=== PATIENT | female | born 1960 | race African-American/Black ===

== ENCOUNTER → 2016-07-25 | Outpatient (CLI) | payer OTHER ==
--- NOTE | ~2016-07-25 | US128 ---
[id number] [facility]. [facility] [address] [place], [place] [address] [id number] O MR#: [id number] Acc #: [id number] NAME: ELIZABETH SMILEY : 1960 SEX: F STUDY DATE/TIME: 07/25/2016 13:53 UNIT: CGUS ROOM: STUDY DESCRIPTION: US Thyroid Attending Physician: Hossein Greer M.D. Referring Physician: Hossein Greer M.D. Ordering Physician: Hossein Greer M.D. Primary Care Physician: Neville Jensen Pa-C MEDICAL IMAGING REPORT This report is preliminary unless electronic signature is present EXAM Thyroid ultrasound. DATE OF EXAM 07/25/2016 COMPARISON Prior study 11/30/2015. CLINICAL HISTORY Routine followup for known thyroid nodules. FINDINGS On the right, overall gland echotexture is normal. There are a few small subcentimeter 4-5 mm nodules. On the left, there is a hypoechoic lateral lower pole nodule solid-appearing measuring 1.3 x 0.7 x 1 cm. It was measured at 1.2 x 0.8 x 1.1 cm previously, not convincingly changed. It is nonhypervascular. There is a second left lobe mostly cystic, mixed cystic and solid nodule currently measuring 1.1 x 0.9 x 1 cm. It is slightly larger than at the time of the prior study when it measured 8 x 8 x 9 mm, but again appears mostly cystic. No new nodules are seen. IMPRESSION 1. Stable left lower pole solid nodule 1.3 x 0.7 x 1 cm. No convincing change since 11/30/2015. 2. Slightly larger but mostly cystic left mid pole lesion measuring 1.1 x 1.0 x 0.9 cm. This is slightly increased since the prior study, primarily due to an increase in fluid component. Continued surveillance is recommended at present. No definite indication for tissue sampling at this time. Dictated by... Domingo Paulino M.D. THIS IS AN ELECTRONICALLY VERIFIED REPORT Domingo Paulino M.D. at 07/26/2016 4:02 PM MC/andrzej TD: 07/25/2016 17:41 JOB #: [id number] MEDICAL IMAGING REPORT Page 1 of 1 COPY
== END | disposition home or self-care (01) ==
LOC: CGUS 13:04
DX: E04.1 Nontoxic single thyroid nodule (principal)
CPT/HCPCS: 76536

== ENCOUNTER → 2016-09-11 | Outpatient (CLI) | payer OTHER ==
--- NOTE | ~2016-09-11 | CR63 ---
[facility] A Service of [facility] RADIOLOGY TEXT RESULTS PATIENT: ELIZABETH SMILEY LOCATION: [facility] : 60 UNIT #: [id number] AGE: [address]: TRACY MCINTYRE APRN SEX: F ORDER DR: [id number] [facility] [address] [place], [place] [address] [id number] O MR#: [id number] Acc #: [id number] NAME: ELIZABETH SMILEY : 1960 SEX: F STUDY DATE/TIME: 09/11/2016 15:55 UNIT: [facility] ROOM: STUDY DESCRIPTION: CR Chest 2 View Attending Physician: Tracy Mcintyre Aprn Referring Physician: Tracy Mcintyre Aprn Ordering Physician: Tracy Mcintyre Aprn Primary Care Physician: Neville Jensen Pa-C MEDICAL IMAGING REPORT This report is preliminary unless electronic signature is present EXAM Chest, PA and lateral, 09/11/2016. HISTORY Shortness breath, cough and chest congestion. Chest pain, left side, under breast for 2 weeks. Smoking history. FINDINGS PA and lateral examination of the chest upright shows a good expansion of the parenchyma with a normal distribution of the pulmonary vascularity. There is no indication of congestion, effusion, infiltrate, tumor, or nodular density. The pleural reflections and diaphragmatic contours are normal. The cardiac silhouette and mediastinal anatomy is within normal limits. IMPRESSION Normal chest. Dictated by... Fernando Lane M.D. THIS IS AN ELECTRONICALLY VERIFIED REPORT Fernando Lane M.D. at 09/13/2016 8:11 AM DUARTE/tin TD: 09/12/2016 11:41 JOB #: [id number] MEDICAL IMAGING REPORT Page 1 of 1 COPY
== END | disposition home or self-care (01) ==
LOC: CRAD 15:35
DX: R06.00 Dyspnea, unspecified (principal); R07.9 Chest pain, unspecified
CPT/HCPCS: 71020

== ENCOUNTER → 2016-11-28 | Outpatient (CLI) | payer OTHER ==
--- NOTE | ~2016-11-28 | US5 ---
[facility] A Service of [facility] RADIOLOGY TEXT RESULTS PATIENT: ELIZABETH SMILEY LOCATION: [facility] : 60 UNIT #: [id number] AGE: [address]: Rosalie Menezes CALL CENTER COORDINATOR SEX: F ORDER DR: [id number] [facility] [address] [place], [place] [address] [id number] O MR#: [id number] Acc #: [id number] NAME: ELIZABETH SMILEY : 1960 SEX: F STUDY DATE/TIME: 11/28/2016 9:36 UNIT: [facility] ROOM: STUDY DESCRIPTION: US Abdominal Complete Attending Physician: Rosalie Menezes A.P.R.N. Referring Physician: Karl Chatman M.D. Ordering Physician: Rosalie Menezes A.P.R.N. Primary Care Physician: Tracy Manzo Aprn MEDICAL IMAGING REPORT This report is preliminary unless electronic signature is present EXAM Abdominal ultrasound INDICATIONS Left-sided abdominal pain beginning 11/18/2016 PROCEDURE Puri-scale and Doppler imaging of the abdomen COMPARISON 03/20/2016 FINDINGS Pancreas shows no appreciable abnormality. There is a 1.4 cm cyst in the left lobe of the liver. Liver measures 14.2 cm. Unremarkable gallbladder. Right kidney measures 10.4 cm. No hydronephrosis. Common duct measures 3 mm. Submitted images abdominal aorta inferior vena cava unremarkable. Spleen measures 9.6 cm. Left kidney measures 11.8 cm and is unremarkable. IMPRESSION 1. No acute findings in the abdomen. 2. Small benign left hepatic lobe cyst. Dictated by... Dimas Scott M.D. THIS IS AN ELECTRONICALLY VERIFIED REPORT Dimas Scott M.D. at 11/29/2016 3:28 PM EED/rnr TD: 11/28/2016 14:14 JOB #: [id number] [facility] A Service [facility] RADIOLOGY TEXT RESULTS PATIENT: ELIZABETH SMILEY LOCATION: [facility] : 60 UNIT #: [id number] AGE: [address]: Rosalie Menezes SEX: F ORDER DR: MEDICAL IMAGING REPORT Page 1 of 1 COPY
== END | disposition home or self-care (01) ==
LOC: CWCC 08:58
DX: R10.32 Left lower quadrant pain (principal); K76.89 Other specified diseases of liver
CPT/HCPCS: 76700

== ENCOUNTER → 2016-12-04 | Outpatient (CLI) | payer OTHER ==
--- NOTE | ~2016-12-04 | MY29 ---
[facility] A Service of [facility] RADIOLOGY TEXT RESULTS PATIENT: ELIZABETH SMILEY LOCATION: [facility] : 60 UNIT #: [id number] AGE: [address]: TRACY MCINTYRE APRN SEX: F ORDER DR: [id number] [facility] [address] [place], [place] [address] [id number] O MR#: [id number] Acc #: [id number] NAME: ELIZABETH SMILEY : 1960 SEX: F STUDY DATE/TIME: 12/04/2016 10:07 UNIT: [facility] ROOM: STUDY DESCRIPTION: MY KYLE SCREENING W/ CAD BILAT Attending Physician: Tracy Mcintyre Aprn Referring Physician: Rosalie Menezes A.P.R.N. Ordering Physician: Tracy Mcintyre Aprn Primary Care Physician: Tracy Mcintyre Aprn MEDICAL IMAGING REPORT This report is preliminary unless electronic signature is present EXAM Digital screening mammogram 12/04/2016 HISTORY 56-year-old woman. Positive family history. Annual screen. COMPARISON Mammograms date to 01/12/2014 with most recent 09/29/2015. FINDINGS Digital imaging of each breast was completed utilizing a two-view examination of each breast in craniocaudal and mediolateral-oblique projections. Review and interpretation of digital mammograms include a second review in conjunction with FDA-approved CAD device. There is a normal parenchymal presentation bilaterally consistent with the patient's age. There are no breast masses imaged and no parenchymal asymmetry is visualized. There are no suspicious microcalcifications and I see no focal architectural disturbance. Breast parenchyma is fatty-replaced. IMPRESSION Negative screening digital mammogram. One-year follow up recommended. Breast parenchyma is fatty-replaced. Patients over the age of 40 are entered into a reminder system with target due date for the next mammogram. A result letter will also be sent to the patient. BIRADS: 1 Negative Dictated by... El Shultz M.D. [facility] A Service of [facility] RADIOLOGY TEXT RESULTS PATIENT: ELIZABETH SMILEY LOCATION: [facility] : 60 UNIT #: [id number] AGE: [address]: TRACY MCINTYRE APRN SEX: F ORDER DR: THIS IS AN ELECTRONICALLY VERIFIED REPORT El Shultz M.D. at 12/04/2016 3:26 PM Dong TD: 12/04/2016 14:01 JOB #: [id number] MEDICAL IMAGING REPORT Page 1 of 1 COPY
== END | disposition home or self-care (01) ==
LOC: CWCC 09:44
DX: Z12.31 Encounter for screening mammogram for malignant neoplasm of breast (principal); Z80.3 Family history of malignant neoplasm of breast
CPT/HCPCS: G0202